=== PATIENT | female | born 1945 | race Caucasian/White ===

== ENCOUNTER 2024-09-03 13:15 | Emergency (ER) | payer MEDICARE, BC, SELFPAY ==
[2024-09-03 13:18] VITALS: BP 130/82; PULSE 104; RESP 16; TEMP 37.4; O2SAT 98
[2024-09-03 13:20] VITALS: BP 130/82; PULSE 104; RESP 16; TEMP 37.4; O2SAT 98
--- NOTE | 2024-09-03 14:17 | NUR.NOTE ---
This account entered in error; removed from tracker. Nursing Note:
== END 2024-09-03 13:41 | disposition other institution (70) ==
LOC: ER 14:10
PROVIDERS: Emergency Provider Student in an Organized Health Care Education/Training Program
DX: Z53.21 Procedure and treatment not carried out due to patient leaving prior to being seen by health care provider (principal)